=== PATIENT | female | born 1980 | race Caucasian/White ===

== ENCOUNTER 2017-08-10 16:26 | Inpatient (IN) ==
--- NOTE | 2017-08-10 16:43 | OB.PROGRES ---
Interval History: The patient is a 37-year-old white female with an CHRISTINE of 09/02/2017 at 36- 5/7 weeks who has been followed over the past many weeks with serial ultrasounds for growth. Today the patient presented for an OB visit. Positive movement, no leak of fluid, no bleeding. The patient did have a reactive nonstress test this morning. The patient has been hydrating well. Blood pressure was normal, fundal height was 32 cm, the patient's cervix was posterior and closed with speculum exam but I could not palpate her cervix since it was so posterior. Ultrasound showed the baby to be in cephalic presentation and OP. ROCCO was found to be 4.9 cm with the largest pocket being 2.5 cm. The patient acknowledged that the fluid pockets were not present on like last week in the week before when she had good fluid pockets. -The patient's 20 week ultrasound showed BPD 54th percentile, head circumference 18th percentile and femur length 92nd percentile. Estimated gestational age 20 and one sevenths weeks versus 19-5/7 weeks by 09/02/2017 CHRISTINE.Placenta was posterior. -Ultrasound done 06/11/2017 showed an EFW to be 72nd percentile. -Ultrasound 07/02/2017 for size less than dates showed EFW to be 32nd percentile. -Ultrasound 07/24/2017 showed baby to be 17th percentile and Cord Dopplers were normal at 3.2 and 3.3. Head circumference was noted to be 2nd percentile but head in pelvis -Ultrasound 08/06/2017 showed EFW to be 6 percentile at 2266 g. BPD was 7th percentile, head circumference was less than 2nd percentile, abdominal circumference 5th percentile, femur length 5th percentile. Cord Dopplers were normal at 3 and 3.3. ROCCO was 11.6 cm. Placenta was grade 3. The patient has had antepartum testing for the past few weeks and there have been reactive nonstress test. Cord Dopplers have been normal also. I spoke with maternal- medicine-Dr. Santiago-in [place], [place] being that our maternal- medicine consultants are in [place], [place].We discussed the above information.I also informed maternal- medicine that I did administer antepartum steroids on July 31 and 2016. With the fact that the AFIs have been normal, the Dopplers are normal, and the nonstress tests have been reactive, the recommendation wass to continue surveillance with antepartum testing, ROCCO, nonstress tests, and cord Dopplers and then deliver the patient between 37 and 38 weeks gestation.The reasoning behind this decision is that with the reactive nonstress test and the ROCCO's and the cord Dopplers being normal, it was the thought of maternal medicine that it is better for the baby to grow in utero versus be delivered now. With the new finding of the low ROCCO, induction will start today. Past medical history benign-no hypertension no asthma no diabetes Past surgical history oral surgery. No abdominal history No known drug allergies Tobacco-patient quit tobacco when she discovered she was . No alcohol since she discovered she was . Occasional before then but nothing significant. No drugs. Menarche around age 12. No abnormal Pap smear history but abnormal Pap smear in this . 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 Colposcopy was done but no biopsies. Plan was for repeat Pap and colposcopy . Objective - Cervical Exam Cervical Exam: Cervix visualized with speculum exam since I cannot palpate cervix with my cervical exam. Cervix was closed and very posterior. Assessment and Plan - Assessment / Plan Additional Assessment/Plan Details: Assessment: IUP 36-5/7 weeks with IUGR ranging from head circumference less than 2nd percentile the femur length of 5th percentile to BPD of 7th percentile. And now ROCCO of 4.9 cm which is oligohydramnios. Please see my HPI for ultrasound measurements on 08/06/2017. Blood pressure normal today. Reactive nonstress test this morning. By ultrasound, the baby is in the cephalic presentation and direct OP currently. GBS negative. Advanced maternal age may be the etiology for the IUGR. The placenta is a grade 3 placenta on ultrasound last week. Cord Dopplers have been normal. Lip pressures of all been normal. Plan: I discussed with patient cervical ripening and induction of labor. I discussed using Cytotec at a low dose of 25 g which is an off label use but studied and used in [employer] for the past 20 years. The patient had discussed primary section earlier in the but decided that she would like a trial labor. Now with the patient having to undergo induction of labor with a cervix that is closed, primary section was discussed with the patient believes she currently would like to try cervical ripening to determine if her cervix changes. We also discussed tachysystole and nonreassuring status necessitating a section. We discussed that sometimes with lower amniotic fluid this can occur but is not common and I will use the lower dose of 25 g of Cytotec per vagina every 6 hours. The patient expressed understanding. The patient also understands that she can change her mind and request a section at any point if that is her druthers. The patient and I also discussed the fact that with her cervix being closed that she is at increased risk for section with induction of labor for IUGR. The normal risk for section if somebody comes in in active labor maybe 20-30% but maybe higher secondary to induction of labor with a closed cervix with cervical ripening. The patient expressed understanding. I asked the patient to go to labor and delivery from my office but the patient stated that she would like to go home for 1 hour to gather some different items from her house and then go to labor and delivery. I expressed understanding considering that she has been up and around today after the reactive nonstress test this morning. However, I did express to the patient that I was not used to allowing patient's to go home once I discover the patient has oligohydramnios. The patient expressed understanding and would be very quick and back to labor and delivery. I did not approve of this but I acknowledged that she would be doing this. A CBC and CMP will be obtained on admission. The patient has been taking a baby aspirin daily. She takes this in the evening. She will not take her dose this evening.
[2017-08-10] MEDS ORDERED: ePHEDrine Inj 5 MG in Normal Saline Flush 1 ML IVP PRN (16:52)
[2017-08-10] MEDS ORDERED: Naloxone Inj 0.01 MG in Normal Saline Flush 1 ML IVP PRN (16:52)
[2017-08-10] MEDS ORDERED: OXYTOCIN 10 UNIT/1 ML IM PRN (16:52)
[2017-08-10] MEDS ORDERED: fentaNYL Inj 100 MCG/2 ML VIAL IV PRN (16:52)
[2017-08-10] MEDS ORDERED: diphenhydrAMINE 50 MG/1 ML VIAL IVP PRN (16:52)
[2017-08-10] MEDS ORDERED: CALCIUM CARBONATE 500 MG (TUMS) CHEWABLE TABLET PO PRN (16:52)
[2017-08-10] MEDS ORDERED: CefOXitin Inj 2 GM in Sodium Chloride 0.9% 100 ML IV PRN (16:52)
[2017-08-10] MEDS ORDERED: Lidocaine 1% 10 MG/ML - 20 ML VIAL SUBCUT PRN (16:52)
[2017-08-10] MEDS ORDERED: Famotidine Inj 20 MG in Normal Saline Flush 10 ML IVP PRN ×4 (16:52)
[2017-08-10] MEDS ORDERED: TERBUTALINE SULFATE 1 MG/1 ML SDV SUBCUT PRN (16:52)
[2017-08-10] MEDS ORDERED: Metoclopramide Inj 10 MG/2 ML VIAL IV PRN (16:52)
[2017-08-10] MEDS ORDERED: Phenylephrine Inj 50 MCG in Normal Saline Flush 0.5 ML IVP PRN (16:52)
[2017-08-10] MEDS ORDERED: LIDOCAINE HCL 2 % 10 ML JELLY URO-JECT TOPICAL PRN (16:52)
[2017-08-10] MEDS ORDERED: LIDOCAINE W/ SODIUM BICARB 0.5 ML SYR SUBD PRN (16:52)
[2017-08-10] MEDS ORDERED: MISOPROSTOL 200 MCG TABLET RECTAL PRN (16:52)
[2017-08-10] MEDS ORDERED: NORMAL SALINE 10 ML SYRINGE FLUSH IVP PRN (16:52)
[2017-08-10] MEDS ORDERED: Nalbuphine Inj 20 MG/ML Ampule IVP PRN (16:52)
[2017-08-10] MEDS ORDERED: NALOXONE 0.4 MG/1 ML VIAL IVP PRN (16:52)
[2017-08-10] MEDS ORDERED: METHYLERGONOVINE MALEATE 0.2 MG/1 ML VIAL IM PRN (16:52)
[2017-08-10] MEDS ORDERED: Carboprost Inj 250 MCG/ML AMP IM PRN (16:52)
[2017-08-10] MEDS ORDERED: CITRIC ACID/SODIUM CITRATE 30 ML CUP PO PRN (16:52)
[2017-08-10] MEDS ORDERED: ONDANSETRON 4 MG/2 ML VIAL IVP PRN (16:52)
[2017-08-10] MEDS ORDERED: BUTORPHANOL TARTRATE 2 MG/1 ML VIAL IVP PRN (16:52)
[2017-08-10] MEDS ORDERED: Oxytocin 20 Units + LR 20 UNIT/1,000 ML BAG IV SCH (17:00)
[2017-08-10 17:50] LABS: Hematocrit [HCT] 38.7 % (37.0-47.0); Hemoglobin [HGB] 13.1 g/dL (12.0-16.0); MEAN CORPUSCULAR HEMOGLOBIN 32.6 PG (27-31); MEAN CORPUSCULAR HGB CONC 33.9 g/dL (33-37); MEAN CORPUSCULAR VOLUME 96.3 FL (81-99); MEAN PLATELET VOLUME 10.6 FL (7.4-12.2); RED BLOOD COUNT 4.02 10^6/uL (4.20-5.40)
[2017-08-10 18:01] LABS: BLOOD UREA NITROGEN 13 mg/dL (7-22); BUN/CREATININE RATIO 21.66 (6-20); SERUM ALBUMIN 3.6 g/dL (3.5-4.8)
[2017-08-10] MEDS: Lactated Ringers-OB Dept 1,000 ML PRIMARY IV SCH (19:06)
[2017-08-10] MEDS ORDERED: Misoprostol Tab 100 MCG TAB VAGINAL PRN (19:38)
--- NOTE | 2017-08-10 20:55 | OB.PROGRES ---
Interval History: Patient presented to labor and delivery after going home briefly. She had some peanut butter for dinner. She is fine with clear liquids for now. She states she is not hungry. She is comfortable. Again, no history of leakage of fluid. Objective - Cervical Exam Cervical Exam: Cervix is closed thick and posterior by speculum exam. I cannot palpate her cervix. [place]: One contraction in 2 hours noted. Heart Rate Interpretation Category: Category I - Labs CBC and BMP: 08/10/17 17:35 08/10/17 17:35 - Vital Signs Last Taken Vital Signs: Vital Signs - Last Taken Temperature 98.3 F 08/10/17 17:47 Pulse Rate 81 08/10/17 17:47 Respiratory Rate 16 08/10/17 17:47 Blood Pressure 104/56 08/10/17 17:47 Pulse Ox 100 08/10/17 19:00 Assessment and Plan - Assessment / Plan Additional Assessment/Plan Details: Assessment: IUP 36-5/7 weeks with IUGR with the head circumference less than the 2nd percentile but otherwise the 5th to the 7th percentile. Dopplers have been normal, and NSTs have been reactive, and ROCCO's have been normal until today when the ROCCO was noted to be 4.9 cm-oligohydramnios. I had previously checked the patient's cervix prior to the ultrasound to check the ROCCO so I did not do an amniosure. The patient's cervix was not favorable with the cervix being closed. Patient is GBS positive. Patient is also AMA. Currently the patient would like to try induction of labor with cervical ripening versus having a primary section. However, the patient reserves the right to ask for if she would like this in the following day to couple days. Plan: I discussed with the patient again cervical ripening secondary to the fact that her cervix is closed thick and posterior. The baby is in the cephalic presentation and currently in the OP position. We discussed using Pitocin, using a Condon bulb for cervical ripening, Cervidil which we do not have here at [facility] and Cytotec which is an off label use for this medication but steady very well in obstetrics and gynecology. Pitocin could be used for cervical ripening but with her cervix closed it may not be the best cervical ripening agent. Currently, secondary to the position of the patient's cervix and the fact that the patient's cervix is closed, a Condon bulb would be difficult to place and very uncomfortable for the patient. We do not have Cervidil here at [facility]. Cytotec at a dose of 25 g every 6 hours could be used. I do not find any contraindications in the medical literature with oligohydramnios and/or IUGR, however; I did inform the patient that there can be tachysystole and intolerance to contractions. If this were to occur, patient would need a section more urgently or even stat. Terbutaline could be used if tachysystole did occur and there was intolerance to the contractions. The patient expressed understanding. The first dose of Cytotec was placed at around 2040 hrs. We will observe the patient closely to observe for uterine contractions and the heart rate tracing. The patient understands the main indications for a section are failed cervical ripening, arrest of dilation, arrest of descent, and intolerance to labor. Patient also understands there are some more infrequent scenarios that may lead to a section also. - Time/Visit Time Spent With Patient: 15-25 Minutes
[2017-08-10] MEDS ORDERED: MORPHINE SULFATE/PF 10 MG/10 ML AMPULE ONE (23:22)
--- NOTE | 2017-08-10 23:25 | OB.PROGRES ---
Interval History: The patient is comfortable and can feel some cramping. Objective - Cervical Exam Cervical Exam: I could not palpate the patient's cervix but I did remove the small 25 g tablet of Cytotec. Heart Rate Interpretation Category: Category II (Some variable decelerations around contractions that were actually just uterine irritability. Currently, there are accelerations but about 30-45 minutes ago there were 2 decelerations that were significant.) - Labs CBC and BMP: 08/10/17 17:35 08/10/17 17:35 - Vital Signs Last Taken Vital Signs: Vital Signs - Last Taken Temperature 98.6 F 08/10/17 21:45 Pulse Rate 70 08/10/17 21:45 Respiratory Rate 18 08/10/17 21:45 Blood Pressure 116/63 08/10/17 21:45 Pulse Ox 98 08/10/17 21:45 Assessment and Plan - Assessment / Plan Additional Assessment/Plan Details: Assessment: IUP 36-5/7 weeks with IUGR and oligohydramnios. Cervical ripening for unfavorable cervix with low dose of 25 g of Cytotec. The Cytotec really did not cause tachycardia systole although there is some frequent irritability occasionally but with contractions that did occur, there were decelerations with recovery after a minute. Currently there are accelerations. Therefore, the diagnosis is intolerance to labor remote from delivery or nonreassuring status. Therefore, induction of labor will see sent section will occur. Plan: The risks, benefits, alternatives and indication of a primary section were discussed with the patient for renal intolerance to labor remote from delivery or nonreassuring status. Again, currently there heart rate accelerations. The risk of infection, bleeding, pain, damage to bowel, bladder, nerve, vessel, ureter, hemorrhage, risk of blood transfusion with associated risk, blood clots to the legs or lungs, risk of hysterectomy which means no more children, serious infection requiring more surgeries or even transfer to a tertiary care hospital, and the low risk of were discussed with the patient. The patient asked a few questions and asked a few questions about anesthesia. A consent form was then signed. The patient will be brought to the operating room. Preoperative antibiotics will be administered-Mefoxin 2 g.
[2017-08-10] MEDS ORDERED: ePHEDrine Inj 50 MG/ML AMP ONE (23:43)
[2017-08-10] MEDS ORDERED: OXYTOCIN 10 UNIT/1 ML ONE (23:47)
[2017-08-11] MEDS ORDERED: Lactated Ringers 1,000 ML PRIMARY IV ONE ×2 (00:08→20:13)
[2017-08-11] MEDS ORDERED: NORMAL SALINE 10 ML SYRINGE FLUSH IVP PRN (00:57)
[2017-08-11] MEDS ORDERED: ONDANSETRON 4 MG/2 ML VIAL IVP PRN ×2 (00:57→01:36)
[2017-08-11] MEDS ORDERED: HYDROmorphone 2 MG/1 ML IVP PRN (00:57)
[2017-08-11] MEDS ORDERED: fentaNYL Inj 100 MCG/2 ML VIAL IVP PRN (00:57)
--- NOTE | 2017-08-11 00:59 | CRNA.PROGR ---
Anesthesia Recovery Phase I - Post Anesthesia Evaluation Patient's Condition on Arrival in Phase I: Stable Pain Level: 0
[2017-08-11] MEDS ORDERED: Lactated Ringers 1,000 ML PRIMARY IV SCH (01:00)
--- NOTE | 2017-08-11 01:00 | OB.OP.NOTE ---
Operative Report Surgeon: Victor M Mineral Economist: Leo Oshea MD Anesthesia Type: Regional (Spinal with Duramorph) Anesthesia Provider: Tre Phillips CRNA Surgery Date: 08/10/17 (2354 hrs) Preoperative Diagnosis: IUP 36-5/7 weeks. Intrauterine growth restriction. Oligohydramnios. Group B strep negative. Advanced maternal age. intolerance to contractions remote from delivery Postoperative Diagnosis: Same Procedure: Primary low transverse section Estimated Blood Loss (mL): 700 Fluids: 1700 mL LR. Pitocin. 150 mL urine. EBL was 700 mL Complications: None apparent Findings at Surgery: Normal male infant with Apgars of 7/6/9 the Apgars of 6 was secondary to the baby holding his breath Weight was 4 lbs. 9 oz. or 2070 g Blood gas showed a pH of 7.236, PCO2 of 51.8, HCO3 of 22, base excess -5 Normal appearing uterus, normal ovaries bilaterally, normal fallopian tubes The patient did have a right ovarian cyst at the beginning of her but this resolved. Indications for the Procedure: Please see my H&P and notes. This patient is a 37-year-old at 36-5/7 weeks who I've been following for several weeks for intrauterine growth restriction. Today the ROCCO was 4.9 cm. The patient's cervical exam showed the cervix to be closed and posterior and thick. Cervical ripening with Pitocin versus Cytotec was discussed with patient. Literature was reviewed since the patient has both intrauterine growth restriction and oligohydramnios. Low-dose Cytotec-25 g was administered. The patient started having some uterine irritability. With a few contractions that occurred, there were decelerations that resolved after about a minute. I was contacted. When I saw the patient, there were actually accelerations. However, with the intolerance to contractions remote from delivery with the patient's cervix being closed and looking at perhaps several day induction, I discussed that it may be prudent to do a section now. The risks, benefits, alternatives and indication of the procedure were discussed with the patient and consent form was signed by the patient and the patient agreed. Patient's was present also and he agreed. Description of Procedure: Patient was taken the operating room after the consent form was signed after the risks, benefits, alternatives and indications were discussed with patient. Patient underwent spinal anesthesia with Duramorph. No complications apparent. Doptone's were then completed and the heart rate was in the 160s. The patient was then prepped and draped sterilely and a Condon catheter was placed. A timeout was then completed and the patient and procedure was identified. The patient was tested and her anesthesia was felt to be adequate. Patient's was in the room. The preprocedure would begin. A Pfannenstiel skin incision was made and I worked my way to the fascia and the fascia was nicked in the midline bilaterally. A few areas in the subcutaneous tissue were bovied secondary to vessels present. Hemostasis was allowed for. The fascia was then extended using the Yankauer as a retractor and the Bovie to incise the fascia. This was completed bilaterally. Rashel clamps were then placed on the fascia either side of the midline on the superior fascia and then the rectus muscles were dissected off of the fascia both bluntly and with the Bovie. The same was done inferiorly. I was then able to enter the peritoneum bluntly high in the patient's abdomen away from the bladder. The peritoneum was bovied to allow the peritoneum to be dissected. I then checked for abdominal adhesions between the fundus of the uterus and the anterior abdominal wall and there were none. The Femi retractor was then placed. I then made a low transverse uterine incision and then entered the uterine cavity. The baby was in the OP presentation. I then placed my hand along the inferior aspect of the low transverse uterine incision along the baby's head and then delivered the baby's head and then shoulders one at a time. The mouth and nose were then bulb suctioned. The infant was then delivered. Delayed cord clamping 30 seconds was allowed for. The baby was crying. The cord was clamped and cut and the baby was handed off to the waiting nurse. A sample of cord was obtained for cord gases and the pH was 7.236, PCO2 of 51.8, HCO3 of 22 , base excess of -5. Cord blood was also obtained. The placenta was then delivered and would be sent to pathology. The uterus was then expressed of any clot and debris were remaining placenta using a lap sponge 2. There appeared to be good hemostasis in the uterus. Attention was then turned to the uterine incision and a few areas were bleeding and G[place]am's were placed along these bleeders. I then closed the uterus using 0 Vicryl suture in a running locking fashion. I then imbricated with a second layer of 0 Vicryl suture in a running fashion. A few other areas were bleeding and a edjzie-rn-tybul suture was used to allow for hemostasis. A lap sponge was placed along the incision and the uterus was then anteflexed and irrigation was used posterior to the uterus and suction. There was good hemostasis and minimal blood. The uterus was then examined and the fallopian tubes and ovaries appeared normal. No masses. The uterus was then placed back in the uterus and then the right gutter was irrigated and then suctioned and then the left gutter was irrigated and suctioned. The uterine incision was examined again and there appeared to be some bleeding at the left angle of the incision. The uterus was then exteriorized again and gently retracting the uterine artery lateral to her my suture site was I placed a hzfkxu-hz-xdrda suture again to allow for good hemostasis. The uterine incision was examined and there appeared to be good hemostasis. One other jpaqbj-dl-otfuf suture was used and then excellent hemostasis was allowed for. The uterus was then placed back into the abdomen. The anterior peritoneum was then grasped and then closed with 3-0 Vicryl suture. The fascia was then examined and irrigated. There did not appear to be any bleeding subfascially. The fascia was then closed starting the left angle with 0 Vicryl suture in a running fashion. I closed this to just past the midline and then Dr. Oshea close the fascia starting at the right angle with 0 Vicryl suture in a running fashion. He suture just past my fascial closure. Then the suture was tied and then the 2 sutures were tied together. The subcutaneous tissue was irrigated and then I did close the subcutaneous tissue with 3-0 Vicryl suture. The subcutaneous tissue may have been 1-1/2-2 cm total depth. I thought there would be a better skin closure if I did close the subcutaneous tissue. I then closed the skin with Stratafix 4-0 suture. Then skin prep was used for an adhesive and then Steri-Strips were placed. Then Silverlon dressing was applied and then an ABD pad was used and then paper tape. A vaginal exam was then completed. There was small amount of dark blood but no bright red blood and no clots. The cervix was slightly open. Minimal bleeding. The patient was then taken to room 303 to recover. The patient's baby was in our small nursery being observed by Dr. Muñoz and her nursing staff. Plan: The patient will recover in a room. Currently, the baby is in the nursery and being observed closely.
--- NOTE | 2017-08-11 01:01 | CRNA.PROGR ---
Anesthesia Time - - Start date: 08/10/17 End date: 08/11/17 - Procedure/Recovery Time Anesthesia : Time In: 23:33 Anesthesia : Time Out: 00:55 Anesthesia : Total Time: 82 - Total Anesthesia Time Total Anesthesia Time (minutes): 82 - Other Weight: 89.358 kg Height: 5 ft 11 in Body Mass Index (BMI): 27.4 Physical Status: P2 Anesthesia Type: Spinal Block Obstetrics: C/S anesthesia only
--- NOTE | 2017-08-11 01:05 | CRNA.PROCE ---
Central Neuraxis Block Placemt - - Safety Measures: Time Out Taken, Site Verified - - Type of Block: Subarachnoid Reason for Block: Surgical Moniters Used During Block: EKG, SPO2, NIBP Positioning: Sitting Skin Prep Used: Betadine Draped: Yes Skin Infiltration - Enter Amount Used in Comment Field: 1% Xylocaine (mL): Yes ( wheal) Spinal Needle Used: 25 [place]ore[place] 80 mm Local Anesthetic - Enter Amount Used in Comment Field: 0.75 % Bupivacaine with Dextrose (ml): Yes (15mg) Additive Used - Enter Amount Used in Comment Field: Preservative Free Morphine ( mg): Yes (0.15mg) - - Additional Details: L3-4 first pass clear csf with good birefringence x2 Anesthesia Time - Other Weight: 89.358 kg Height: 5 ft 11 in Body Mass Index (BMI): 27.4
[2017-08-11] MEDS ORDERED: Nalbuphine Inj 20 MG/ML Ampule IVP PRN (01:36)
[2017-08-11] MEDS ORDERED: CALCIUM CARBONATE 500 MG (TUMS) CHEWABLE TABLET PO PRN (01:36)
[2017-08-11] MEDS ORDERED: Naloxone Inj 0.01 MG, Sodium Chloride 0.9% vial 1 ML IVP PRN ×2 (01:36)
[2017-08-11] MEDS ORDERED: diphenhydrAMINE 25 MG CAPSULE PO PRN (01:36)
[2017-08-11] MEDS ORDERED: LANOLIN HPA 40 GM TUBE TOPICAL PRN (01:36)
[2017-08-11] MEDS ORDERED: Oxytocin 20 Units + LR 20 UNIT/1,000 ML BAG IV SCH (01:36)
[2017-08-11] MEDS ORDERED: diphenhydrAMINE 50 MG/1 ML VIAL IV PRN (01:36)
[2017-08-11] MEDS ORDERED: DIPH,PERTUSS,TET(ADACEL) VAC/PF 0.5 ML (Tdap) IM ONE (01:36)
[2017-08-11] MEDS ORDERED: Famotidine Inj 20 MG in Normal Saline Flush 10 ML IVP PRN (01:36)
[2017-08-11] MEDS ORDERED: KETOROLAC 15 MG/1 ML VIAL IVP ONE (02:00)
[2017-08-11] MEDS: KETOROLAC 15 MG/1 ML VIAL IVP SCH ×4 (02:13→19:53)
[2017-08-11] MEDS: D5-LR 1,000 ML PRIMARY IV SCH ×2 (03:58→14:34)
[2017-08-11] MEDS: Lactated Ringers-OB Dept 1,000 ML PRIMARY IV SCH (04:41)
[2017-08-11] MEDS: NORMAL SALINE 10 ML SYRINGE FLUSH IVP PRN ×2 (14:46→19:54)
--- NOTE | 2017-08-11 16:13 | OB.PROGRES ---
Subjective Post Op Day: 1 Pain Management: PO (Also IV Toradol) Condon Catheter: No Flatus: Yes Diet: Regular [place] Feeding Method: / Bottle Ambulating: Yes Concerns / Additional Information: Patient is doing okay. She was able sleep for 2 hours. She has been up quite a bit taking care of her baby. Objective - General General Appearance: POSITIVE: No Acute Distress, Cooperative - Cardiovacular Cardiovascular Exam: POSITIVE: RRR Extremities: Negative Nik's - Bilaterally - Respiratory Respiratory Exam: POSITIVE: Clear to Auscultation - Bilaterally - Abdomen Abdominal Wound Assessment: Silverlone Dressing (Abdomen is appropriately tender.) Assesstment / Plan Assessment / Plan: Assessment: Post operative day #1 status post primary low transverse section. Surgery was late last evening. The patient did get 2 hours of sleep but she may be overdoing it. Plan: I advised the patient to get some rest. I informed her that ambulation was okay but I did not want her to do to much. She just had major surgery late last night. We also discussed that she had Duramorph and this may be helping with her pain but once it wears off, her pain may increase. The patient expressed understanding. The patient is receiving Toradol 15 mg every 6 hours for total of 5 doses. Then ibuprofen. Oxycodone as needed. The patient should start ambulating more tomorrow. Labs tomorrow morning.
[2017-08-12] MEDS: NORMAL SALINE 10 ML SYRINGE FLUSH IVP PRN (02:01)
[2017-08-12] MEDS: KETOROLAC 15 MG/1 ML VIAL IVP SCH (02:01)
[2017-08-12] MEDS: oxyCODONE-ACETAMINOPHEN 5-325 TAB PO PRN ×3 (02:01→22:21)
[2017-08-12 05:33] LABS: Hematocrit [HCT] 29.9 % (37.0-47.0); Hemoglobin [HGB] 9.8 g/dL (12.0-16.0); MEAN CORPUSCULAR HEMOGLOBIN 32.5 PG (27-31); MEAN CORPUSCULAR HGB CONC 32.8 g/dL (33-37); MEAN PLATELET VOLUME 10.1 FL (7.4-12.2); RED BLOOD COUNT 3.02 10^6/uL (4.20-5.40)
[2017-08-12 05:45] LABS: BLOOD UREA NITROGEN 8 mg/dL (7-22); BUN/CREATININE RATIO 11.42 (6-20); SERUM ALBUMIN 2.7 g/dL (3.5-4.8)
[2017-08-12] MEDS: IBUPROFEN 800 MG TABLET PO PRN ×3 (08:08→22:20)
[2017-08-12] MEDS: Prenatal Multivitamin Tab 1 TAB TAB PO SCH (08:09)
[2017-08-12] MEDS: DOCUSATE 100 MG CAPSULE PO SCH ×2 (08:09→22:21)
--- NOTE | 2017-08-12 09:57 | OB.PROGRES ---
Interval History: The patient feels well. Breast-feeding and bottle feeding. Ambulating okay. Incorrect note. I will sign the since it will not let me to late this note. Please see my other note from this day. Objective - Labs CBC and BMP: 08/12/17 04:55 08/12/17 04:55 - Vital Signs Last Taken Vital Signs: Vital Signs - Last Taken Temperature 98 F 08/12/17 07:43 Pulse Rate 77 08/12/17 07:43 Respiratory Rate 16 08/12/17 07:43 Blood Pressure 110/62 08/12/17 07:43 Pulse Ox 97 08/12/17 07:43
--- NOTE | 2017-08-12 09:59 | OB.PROGRES ---
Subjective Post Op Day: 2 Pain Management: PO Condon Catheter: No Flatus: Yes Diet: Regular Feeding Method: / Bottle Ambulating: Yes Concerns / Additional Information: The patient feels well. Objective CardioVascular: Regular rate and rhythm Respiratory: Clear to auscultation Bowel Sounds: Present Incision: Clean and dry with Steri-Strips well approximating the incision. No erythema or exudate. Extremities: Negative Nik's - Bilaterally Assesstment / Plan Assessment / Plan: Assessment: Postop day #2 status post primary low transverse section Patient doing well Mild anemia with H&H 9.8 and 29 Plan: Ferrous sulfate 325 1 by mouth twice a day starting this evening Colace twice a day Motrin 3 times a day Oxycodone as needed Consider discharge tomorrow
[2017-08-12] MEDS: FERROUS SULFATE 325 MG TABLET PO SCH ×2 (11:07→22:21)
[2017-08-13] MEDS: oxyCODONE-ACETAMINOPHEN 5-325 TAB PO PRN ×4 (04:33→20:37)
[2017-08-13] MEDS: IBUPROFEN 800 MG TABLET PO PRN ×2 (08:22→16:38)
[2017-08-13] MEDS: DOCUSATE 100 MG CAPSULE PO SCH ×2 (08:22→20:37)
[2017-08-13] MEDS: Prenatal Multivitamin Tab 1 TAB TAB PO SCH (08:22)
[2017-08-13] MEDS: FERROUS SULFATE 325 MG TABLET PO SCH ×2 (08:22→20:37)
--- NOTE | 2017-08-13 11:16 | OB.PROGRES ---
Subjective Post Op Day: 3 Pain Management: PO Condon Catheter: No Flatus: Yes Diet: Regular Feeding Method: / Bottle Ambulating: Yes Concerns / Additional Information: The patient states that her baby will stay for a couple days secondary to the weight of the baby and glucose stabilization. The patient would like to be discharged today. The patient will room in with her baby. The patient states that she is doing well. She did not get sleep last night secondary to the baby but this morning she took a good nap. No specific problems. The patient has noted some bilateral lower leg swelling. Objective General: No acute distress CardioVascular: Regular rate and rhythm Respiratory: Clear to auscultation Bowel Sounds: Present Incision: Dressing applied. Extremities: Negative Nik's - Bilaterally (Bilateral pitting edema 1+ bilaterally. No Homans.) Assesstment / Plan Assessment / Plan: Assessment: Postoperative day #3 status post primary low transverse section on Thursday evening. Patient has mild anemia. The patient has been afebrile and doing very well. Plan: Discharge home today. Follow up next week Please see the discharge plan note Discharge medications ibuprofen, Colace, ferrous sulfate, oxycodone/Tylenol. Usual postoperative instructions.
[2017-08-13 17:52] VITALS: TEMP 98.2; O2SAT 96
[2017-08-13 23:55] VITALS: BP 103/76; RESP 20
--- NOTE | 2017-08-17 15:38 | DCSUMMARY ---
Hospitalization Summary Admit Date: 08/10/17 Discharge Date: 08/13/17 Primary Diagnosis:: IUP 36-5/7 weeks with intrauterine growth restriction Secondary Diagnosis:: intolerance to contractions Primary Surgery and Date: 08/10/2017. Primary low transverse section Delivery Type: Hospital Course: Patient was admitted for induction of labor secondary to IUGR. The fetus did not tolerate contractions. Primary low transverse section was completed for intolerance to contractions remote from delivery. Baby's weight was 4 lbs. 9 oz. Please see my notes. The patient recovered well from her section and was discharged on postoperative day #3. Her surgery was at 2354 hrs. on 08/10/2017 and she was discharged on 08/13/2017. The patient stayed to room in secondary to the size of her baby. The patient's recovery was uneventful. / Postop Complications: No known complications. Complications: The baby had intrauterine growth restriction and was 4 lbs. 9 oz. at . The baby's main issue was glucose stability during the hospitalization. Exam - Vitals Vital Signs: Vital Signs Temperature 98.2 F Temperature Source Oral Pulse Rate [Pulse Oximeter] 98 Pulse Rate 69 Respiratory Rate 20 Blood Pressure [Right Arm] 103/76 Blood Pressure 104/69 Pulse Ox 96 Oxygen Flow Rate 1 Oxygen Delivery Method Room Air Height 5 ft 11 in Weight 197 lb
== END 2017-08-13 23:59 | disposition home or self-care (01) | DRG 765 ==
LOC: OBIP 17:01 → MED/SURG 08-11 01:14 → OBIP 08-11 01:18
PROVIDERS: ADMIT Obstetrics & Gynecology; ATTEND Obstetrics & Gynecology